=== PATIENT | male | born 1965 | race Two or more races ===

== ENCOUNTER 2018-10-20 14:57 | Emergency (ER) | payer OTHER ==
[~2018-10-20] VITALS: Ht 157.5 cm; Wt 63.5 kg
[2018-10-20 16:06] VITALS: BP 143/94
== END 2018-10-20 16:55 | disposition home or self-care (01) ==
LOC: ER 15:01
DX: J02.9 Acute pharyngitis, unspecified (principal)
CPT/HCPCS: 71046